=== PATIENT | male | born 1985 | race Hispanic/Latino ===

== ENCOUNTER 2020-12-08 16:10 | Emergency (ER) | payer OTHER, SELFPAY ==
[2020-12-08] MEDS ORDERED: Ketorolac Tromethamine 30 MG/ML VIAL ONE (18:07)
== END 2020-12-08 18:00 | disposition home or self-care (01) ==
LOC: ERS 16:10
DX: S80.11XA Contusion of right lower leg, initial encounter (principal); X58.XXXA Exposure to other specified factors, initial encounter
CPT/HCPCS: 96372; J1885

== ENCOUNTER 2021-03-31 09:58 | Outpatient (CLI) | payer SELFPAY ==
[2021-03-31 11:32] LABS: #Basophils 0.1 10x3/uL (0.0-0.2); #Eosinphils 0.2 10x3/uL (0.0-0.5); #Monocytes 0.7 10x3/uL (0.0-1.1); #Neutrophils 4.2 10x3/uL (1.5-8.4); %Eosinophils 2.5 % (0.0-6.0); %Lymphocytes 36.5 % (18.0-47.0); %Monocytes 8.3 % (0.0-10.0); %Neutrophils 51.3 % (40.0-75.0); Hemoglobin 15.2 g/dL (13.5-17.5); Mean Corpuscular Hemoglobin 28.8 pg (27.0-33.0); Mean Corpuscular Volume 87.3 fl (81.2-95.1); Mean Platelet Volume 8.6 fl (7.4-10.4); Platelet Count 290 10x3/uL (150-450); RBC Distribution Width 12.6 % (11.5-14.5); Red Blood Cell (RBC) Count 5.27 10x6/uL (4.32-5.72); White Blood Cell (WBC) Count 8.1 10x3/uL (3.5-10.5)
[2021-03-31 21:11] LABS: SARS-CoV-2 PCR by NAA Not Detected (NotDetected)
== END 2021-03-31 09:59 | disposition home or self-care (01) ==
LOC: LABBT 09:58
PROVIDERS: ATTEND Orthopaedic Surgery
DX: Z01.812 Encounter for preprocedural laboratory examination (principal); S83.511A Sprain of anterior cruciate ligament of right knee, initial encounter; S83.281A Other tear of lateral meniscus, current injury, right knee, initial encounter; Z20.822 Contact with and (suspected) exposure to COVID-19
CPT/HCPCS: 85025; U0003; U0005

== ENCOUNTER 2021-04-05 08:38 | Day surgery (SDC) | payer OTHER ==
[2021-04-04 12:48] VITALS: BMI 32.6
[2021-04-05] MEDS ORDERED: ceFAZolin 2 GM/DEX 5% 100 ML BAG ONE (09:53)
[2021-04-05] MEDS ORDERED: Fentanyl 100 MCG/2 ML VIAL ONE ×3 (10:14→14:07)
[2021-04-05] MEDS ORDERED: Midazolam HCl 2 mg/2 ml Vial ONE (10:14)
[2021-04-05] MEDS ORDERED: PHENYLEPHRINE-NS 100 MCG/ML 10 ML SYRINGE ONE (11:05)
[2021-04-05] MEDS ORDERED: PROPOFOL 200 MG/20 ML VIAL ONE (11:05)
[2021-04-05] MEDS ORDERED: ePHEDrine 50 MG/ML VIAL ONE (11:05)
[2021-04-05] MEDS ORDERED: Lidocaine 1% PF 5 ML VIAL ONE (11:05)
[2021-04-05] MEDS ORDERED: Bupivacaine HCl 0.5%/Epinephrine 1:200,000/PF 30 ml Vial ONE (11:05)
[2021-04-05] MEDS ORDERED: Meperidine HCl/PF 25 MG/ML VIAL ONE (13:39)
[2021-04-05] MEDS ORDERED: Ondansetron PF 4 MG/2 ML Vial ONE (15:13)
[2021-04-05] MEDS ORDERED: HYDROcodone/Acetaminophen 5/325 mg Tablet ONE (15:46)
[2021-04-05] MEDS ORDERED: Promethazine HCl 25 MG/ML VIAL ONE (17:02)
== END 2021-04-05 17:52 | disposition home or self-care (01) ==
LOC: SDC 08:38
PROVIDERS: ATTEND Orthopaedic Surgery
PROC: 0MRN47Z Replacement of Right Knee Bursa and Ligament with Autologous Tissue Substitute, Percutaneous Endoscopic Approach (ICD-10-PCS; principal; 2021-04-05)
PROC: 3E0T3BZ Introduction of Anesthetic Agent into Peripheral Nerves and Plexi, Percutaneous Approach (ICD-10-PCS; principal; 2021-04-05)
PROC: 0SQC4ZZ Repair Right Knee Joint, Percutaneous Endoscopic Approach (ICD-10-PCS; principal; 2021-04-05)
DX: S83.511A Sprain of anterior cruciate ligament of right knee, initial encounter (principal); S83.281A Other tear of lateral meniscus, current injury, right knee, initial encounter; W17.89XA Other fall from one level to another, initial encounter; Y99.0 Civilian activity done for income or pay
CPT/HCPCS: C1713; J2175; J2250; J2405; J2550; J2704; J3010; J3490

== ENCOUNTER 2021-08-11 13:11 | Outpatient (CLI) | payer OTHER | END 2021-08-11 13:12 | disposition home or self-care (01) | LOC: SCSMRI 13:11 | PROVIDERS: ATTEND Orthopaedic Surgery | DX: S83.281A Other tear of lateral meniscus, current injury, right knee, initial encounter (principal); R93.7 Abnormal findings on diagnostic imaging of other parts of musculoskeletal system ==

== ENCOUNTER 2021-10-27 14:11 | Outpatient (CLI) | payer SELFPAY ==
[2021-10-27 15:16] LABS: #Basophils 0.1 10x3/uL (0.0-0.2); #Eosinphils 0.2 10x3/uL (0.0-0.5); #Monocytes 0.6 10x3/uL (0.0-1.1); #Neutrophils 4.8 10x3/uL (1.5-8.4); %Eosinophils 2.3 % (0.0-6.0); %Lymphocytes 28.1 % (18.0-47.0); %Neutrophils 61.5 % (40.0-75.0); Hemoglobin 14.6 g/dL (13.5-17.5); Mean Corpuscular HGB CONC 33.6 g/dL (32.0-36.0); Mean Corpuscular Hemoglobin 28.6 pg (27.0-33.0); Mean Corpuscular Volume 85.3 fl (81.2-95.1); Mean Platelet Volume 8.6 fl (7.4-10.4); Platelet Count 286 10x3/uL (150-450); RBC Distribution Width 12.8 % (11.5-14.5); White Blood Cell (WBC) Count 7.9 10x3/uL (3.5-10.5)
[2021-10-27 15:41] LABS: Anion Gap 14 mmol/L (10-20); BUN (Urea Nitrogen) 7 mg/dL (8.9-20.6); Calc. Creatinine Clearance 0 mL/min (70-130); Calcium 9.1 mg/dL (7.8-10.44); Carbon Dioxide 26 mmol/L (22-29); Chloride 106 mmol/L (98-107); Glucose 126 mg/dL (70-105); Potassium 4.3 mmol/L (3.5-5.1); Sodium 142 mmol/L (136-145)
[2021-10-28 16:33] LABS: SARS-CoV-2 PCR by NAA Not Detected (NotDetected)
== END 2021-10-27 14:12 | disposition home or self-care (01) ==
LOC: LABBT 14:11
PROVIDERS: ATTEND Orthopaedic Surgery
DX: Z01.812 Encounter for preprocedural laboratory examination (principal); Z20.822 Contact with and (suspected) exposure to COVID-19
CPT/HCPCS: 80048; 85025; U0003; U0005

== ENCOUNTER 2021-11-01 07:31 | Day surgery (SDC) | payer OTHER ==
[2021-10-31 11:03] VITALS: BMI 36.0
[2021-11-01] MEDS ORDERED: PROPOFOL 20 ML ONE (08:31)
[2021-11-01] MEDS ORDERED: Sodium Chloride 0.9% 100 ML ONE (09:53)
[2021-11-01] MEDS ORDERED: CEFAZOLIN 2 GM VIAL ONE (09:53)
[2021-11-01] MEDS ORDERED: fentaNYL Citrate/PF 100 MCG/2 ML SYRINGE ONE (10:07)
[2021-11-01] MEDS ORDERED: Meperidine HCl/PF 25 MG/ML VIAL ONE (11:03)
[2021-11-01] MEDS ORDERED: Morphine 2 MG/ML VIAL ONE (13:56)
[2021-11-01] MEDS ORDERED: HYDROcodone/Acetaminophen 5/325 mg Tablet ONE (14:15)
== END 2021-11-01 15:35 | disposition home or self-care (01) ==
LOC: SDC 07:31
PROVIDERS: ATTEND Orthopaedic Surgery
PROC: 0SBC4ZZ Excision of Right Knee Joint, Percutaneous Endoscopic Approach (ICD-10-PCS; principal; 2021-11-01)
DX: M23.261 Derangement of other lateral meniscus due to old tear or injury, right knee (principal); Z98.890 Other specified postprocedural states
CPT/HCPCS: J2175; J2270; J2704; J3490